=== PATIENT | male | born 1955 | race Caucasian/White ===

== ENCOUNTER → 2024-03-31 01:06 | Outpatient (CLI) | payer BC, SELFPAY ==
--- NOTE | 2024-03-31 08:30 | DI.RAD_ITS ---
Exam(s) XR FOOT RT COMPLETE EXAM: XR FOOT RT COMPLETE CLINICAL HISTORY: Right foot pain, M79.671. TECHNIQUE: 2D digital imaging was performed of the right foot. Three images were obtained. AP, obl ique and lateral views were obtained. COMPARISON: No exams were available for comparison FINDINGS: BONES: No acute fracture is present. No bony destructive lesion is seen. Benign-appearing cyst is see n in the middle phalanx of the 2nd toe. Note is made of a large os tibialis externum. There is a sm all enthesophyte at the posterior calcaneus. JOINTS: No dislocation present. Degenerative changes are seen in the foot characterized by joint spac e narrowing and osteophytes. The findings are most prominent at the 1st MTP joint and the interphala ngeal joints of the toes. SOFT TISSUE: Normal. 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 DATA REPOSITORY: RADIATION DOSE DELIVERED:
== END ==
PROVIDERS: Visit Provider Podiatrist
DX: M79.671 Pain in right foot; M19.071 Primary osteoarthritis, right ankle and foot
CPT/HCPCS: 73630